=== PATIENT | female | born 1965 | race Caucasian/White ===

== ENCOUNTER 2021-07-23 18:12 | Emergency (ER) | payer OTHER ==
--- NOTE | 2021-07-23 20:14 | RAD REPORT ---
EXAM DESCRIPTION: RAD - Knee Right 3 View - 07/23/2021 8:04 pm CLINICAL HISTORY: trauma COMPARISON: No comparisons FINDINGS: There is a lucency seen in the lateral tibial plateau which is suspicious for a fracture. Small suprapatellar joint effusion is present. CT imaging may be useful for confirmation.
--- NOTE | 2021-07-23 20:15 | RAD REPORT ---
EXAM DESCRIPTION: RAD - Knee Left 2 View - 07/23/2021 8:04 pm CLINICAL HISTORY: trauma COMPARISON: No comparisons FINDINGS: Arthritic changes are present involving the lateral compartment. No fracture seen. A small suprapatellar joint effusion is likely present.
[2021-07-23] MEDS ORDERED: HYDROCODONE/APAP 5/325 MG TAB ONE ×2 (20:29→22:21)
--- NOTE | 2021-07-23 21:00 | RAD REPORT ---
EXAM DESCRIPTION: CT - Knee Right Wo Cont - 07/23/2021 8:48 pm CLINICAL HISTORY: possible tibial plateau fracture, right knee Pain and swelling COMPARISON: No comparisons FINDINGS: 2 mm depressed fracture of the lateral posterior tibial plateau is present. A small moderate lipohemarthrosis. Moderate tricompartmental osteoarthritis. No soft tissue mass is s een. IMPRESSION: Minimally depressed posterolateral tibial plateau fracture.
--- NOTE | 2021-07-23 22:11 | EDPHYS ---
Physician Documentation [facility] Name: Rosa Senior Age: 56 yrs Sex: Female : 1965 Arrival Date: 07/23/2021 Time: 18:17 Bed 15 Private MD: ED Physician Riccardo Rodríguez HPI: 07/23 18:17 This 56 yrs old Female presents to ER via EMS with complaints of Knee Pain. ms3 18:17 Details of fall: The patient fell from an upright position, while standing. Onset: The ms3 symptoms/episode began/occurred acutely, 2 hour(s) ago. Associated injuries: The patient sustained right knee, contusion, left knee. Severity of symptoms: At their worst the symptoms were severe, in the emergency department the symptoms are unchanged. 56-year-old female with past medical history of psoriatic arthritis presents via [facility] status post fall 2 hours prior to arrival. Patient states her feet went outward after she slipped on a deck causing her to land on her bilateral knees. Patient states her right knee hurts worse than the left. Patient states her pain is a 6/10 and worse with weightbearing. Patient denies alleviating factors.. Historical: - Allergies: 18:20 Compazine; ab2 18:20 Codeine; ab2 18:20 Sulfa (Sulfonamide Antibiotics); ab2 - PMHx: 18:20 Arthritis; Hypertensive disorder; ab2 - PSHx: 18:20 None; ab2 - Immunization history:: Adult Immunizations up to date, Client reports receiving the 2nd dose of the Covid vaccine. - Social history:: Smoking status: Patient denies any tobacco usage or history of. ROS: 18:17 Constitutional: Negative for fever, and chills. Eyes: Negative for injury, pain, ms3 redness, and discharge, ENT: Negative for injury, pain, and discharge, Neck: Negative for injury, pain, and swelling, Cardiovascular: Negative for chest pain, and palpitations. Respiratory: Negative for shortness of breath, cough, wheezing, and pleuritic chest pain, Abdomen/GI: Negative for abdominal pain, nausea, vomiting, diarrhea, and constipation, Back: Negative for injury and pain, Skin: Negative for injury, rash, and discoloration, Neuro: Negative for headache, weakness, numbness, tingling. 18:17 MS/extremity: Positive for injury or acute deformity, swelling, tenderness. 18:17 All other systems are negative. Exam: 18:17 Constitutional: This is a well developed, well nourished patient who is awake, alert, ms3 and in no acute distress. Head/Face: Normocephalic, atraumatic. Eyes: Pupils equal round and reactive to light, extra-ocular motions intact. Lids and lashes normal. Conjunctiva and sclera are non-icteric and not injected. Periorbital areas with no swelling, redness, or edema. Neck: Trachea midline, no cervical lymphadenopathy. Supple, full range of motion without nuchal rigidity, or vertebral point tenderness. No Meningismus. Chest/axilla: Normal chest wall appearance and motion. Nontender with no deformity. Cardiovascular: Regular rate and rhythm with a normal S1 and S2. No gallops, murmurs, or rubs. Normal PMI, no JVD. No pulse deficits. Respiratory: Lungs have equal breath sounds bilaterally, clear to auscultation and percussion. No rales, rhonchi or wheezes noted. No increased work of breathing, no retractions or nasal flaring. Abdomen/GI: Soft, non-tender, with normal bowel sounds. No distension or tympany. No guarding or rebound. No evidence of tenderness throughout. Back: No spinal tenderness. No costovertebral tenderness. Full range of motion. Skin: Warm, dry with normal turgor. Normal color with no rashes, no lesions, and no evidence of cellulitis. Neuro: Awake and alert, GCS 15, oriented to person, place, time, and situation. Cranial nerves II-XII grossly intact. Motor strength 5/5 in all extremities. Sensory grossly intact. Cerebellar exam normal. Normal gait. 18:17 Musculoskeletal/extremity: Extremities: noted in the right knee: contusion, ecchymosis, swelling, tenderness, noted in the left knee: contusion, pain, swelling, tenderness, decreased ROM, ROM: Pulses: are normal with no appreciated deficits, Sensation intact. Compartment Syndrome exam of affected extremity: is normal. Joints: Vital Signs: 18:17 BP 129 / 64; Pulse 83; Resp 18; Temp 97.8(TE); Pulse Ox 100% on R/A; Weight 102.06 kg; ab2 Height 5 ft. 8 in. (172.72 cm); Pain 6/10; 20:08 BP 131 / 68 LA Supine (auto/reg); Pulse 80 MON; Resp 16; Pulse Ox 99% on R/A; sv1 18:17 Body Mass Index 34.21 (102.06 kg, 172.72 cm) ab2 MDM: 18:17 Differential diagnosis: contusion, fracture, sprain, strain. Data reviewed: vital ms3 signs, nurses notes. Transition of care: After a detail discussion of the patient's case, care is transferred to Riccardo Rodríguez MD. 18:19 Patient medically screened. ms3 22:02 Data interpreted: Pulse oximetry: on room air is 99 %. Interpretation: normal. mh7 Counseling: I had a detailed discussion with the patient and/or guardian regarding: the historical points, exam findings, and any diagnostic results supporting the discharge/admit diagnosis, radiology results, the need for outpatient follow up, a orthopedic surgeon, to return to the emergency department if symptoms worsen or persist or if there are any questions or concerns that arise at home. Response to treatment: the patient's symptoms have markedly improved after treatment. Physician consultation: Eric Plaza MD was contacted at 21:50, regarding patient's condition, and will see patient in office, Recommended a knee immobilizer and crutches. 07/23 18:33 Order name: Knee Left 2 View XRAY; Complete Time: 20:25 ms3 07/23 18:33 Order name: Knee Right 3 View XRAY; Complete Time: 20:25 ms3 07/23 20:35 Order name: Knee Right Wo Cont; Complete Time: 21:51 EDMS 07/23 22:01 Order name: Knee Immobilizer; Complete Time: 22:40 mh7 07/23 22:01 Order name: Crutches; Complete Time: 22:40 mh7 Administered Medications: 19:45 Drug: HYDROcodone-acetaminophen 5 mg-325 mg 1 tabs Route: PO; sv1 21:06 Follow up: Response: No adverse reaction; Pain is decreased sv1 22:04 Follow up: Response: No adverse reaction; Pain is decreased sv1 22:20 Drug: HYDROcodone-acetaminophen 5 mg-325 mg 1 tabs Route: Feeding Tube; sv1 22:42 Follow up: Response: No adverse reaction; Pain is decreased sv1 Disposition Summary: 02/26/22 22:11 Discharge Ordered Location: Home [facility] Problem: new [facility] Symptoms: have improved [facility] Condition: Stable [facility] Diagnosis - Tibial Plateau Fracture, Right mh7 - Contusion, Left Knee 7 - Fall on same level, unspecified [facility] Followup: [facility] - With: Private Physician - When: 1 - 2 days - Reason: Worsening of condition, Recheck today's complaints, Continuance of care, Re-evaluation by your physician Followup: [facility] - With: Eric Plaza MD - When: 2 - 3 days - Reason: Worsening of condition, Recheck today's complaints, Continuance of care, Re-evaluation by your physician Discharge Instructions: - Discharge Summary Sheet [facility] - Nondisplaced Tibial Plateau Fracture [facility] - Crutch Use, Adult, [id number] [facility] - Contusion, Fuar-se-Cnez [facility] - How to Use a Knee Immobilizer, [id number] [facility] Forms: - Medication Reconciliation Form [facility] - Thank You Letter [facility] - Antibiotic Education [facility] - Prescription Opioid Use [facility] - Work release form 3 Prescriptions: - ketorolac 10 mg Oral tablet - take 1 tablet by ORAL route every 6 hours As needed not to exceed 40 mg in 7 24hrs; 15 tablet; Refills: 0, Product Selection Permitted - Tramadol 50 mg Oral Tablet - take 1 tablet by ORAL route every 8 hours As needed as needed; 20 tablet; mh7 Refills: 0, Product Selection Permitted Signatures: Dispatcher [employer] EDMS Reilly Stringer DO DO ms3 Riccardo Rodríguez MD MD 7 Fabian Garcia RN RN sv1 Nixon Rabago ab2 Corrections: (The following items were deleted from the chart) 20:35 20:33 CT-LOWER EXTREMITY W/O CONTR ordered. EDMS EDMS
--- NOTE | 2021-07-23 22:11 | ER ---
Nurse's Notes [facility] Name: Rosa Senior Age: 56 yrs Sex: Female : 1965 Arrival Date: 07/23/2021 Time: 18:17 Bed 15 Private MD: Diagnosis: Tibial Plateau Fracture, Right;Contusion, Left Knee;Fall on same level, unspecified Presentation: 07/23 18:17 Chief complaint: Patient states: "I fell walking up my wet stairs and my legs hurt, I ab2 cant put weight on them." Pt denies hitting head or LOC. Chief complaint:. Coronavirus screen: Vaccine status: Patient reports receiving the 2nd dose of the covid vaccine. Client denies travel out of the [place] in the last 14 days. At this time, the client does not indicate any symptoms associated with coronavirus-19. Ebola Screen: Patient negative for fever greater than or equal to 101.5 degrees Fahrenheit, and additional compatible Ebola Virus Disease symptoms Patient denies exposure to infectious person. Patient denies travel to an Ebola-affected area in the 21 days before illness onset. No symptoms or risks identified at this time. Initial Sepsis Screen: Does the patient meet any 2 criteria? No. Patient's initial sepsis screen is negative. Does the patient have a suspected source of infection? No. Patient's initial sepsis screen is negative. Risk Assessment: Do you want to hurt yourself or someone else? Patient reports no desire to harm self or others. Onset of symptoms is unknown. 18:17 Method Of Arrival: EMS ab2 18:17 Acuity: JUMA 4 ab2 Triage Assessment: 20:30 General: Appears distressed, obese, well groomed. Pain: Complains of pain in right leg sv1 and left leg. Historical: - Allergies: 18:20 Compazine; ab2 18:20 Codeine; ab2 18:20 Sulfa (Sulfonamide Antibiotics); ab2 - PMHx: 18:20 Arthritis; Hypertensive disorder; ab2 - PSHx: 18:20 None; ab2 - Immunization history:: Adult Immunizations up to date, Client reports receiving the 2nd dose of the Covid vaccine. - Social history:: Smoking status: Patient denies any tobacco usage or history of. Screenin:24 Abuse screen: Denies threats or abuse. Denies injuries from another. Nutritional ab2 screening: No deficits noted. Tuberculosis screening: No symptoms or risk factors identified. Fall Risk Fall in past 12 months (25 points). No secondary diagnosis (0 pts). No IV (0 pts). Ambulatory Aid- None/Bed Rest/Nurse Assist (0 pts). Gait- Normal/Bed Rest/Wheelchair (0 pts) Mental Status- Oriented to own ability (0 pts). Total Yu Fall Scale indicates Low Risk Score (25-44 pts). Fall prevention measures have been instituted. Side Rails Up X 2 Frequent Obs/Assesments occuring As available Patient and Family Educated on Fall Prevention Program and strategies. Assessment: 18:22 General: Appears in no apparent distress. uncomfortable, Behavior is calm, cooperative, ab2 appropriate for age. Pain: Complains of pain in right leg and left leg Pain currently is 6 out of 10 on a pain scale. Neuro: Level of Consciousness is awake, alert, obeys commands, Oriented to person, place, time, situation, Appropriate for age Bandage Wrapping Machine Operator are equal bilaterally Moves all extremities. Speech is normal, Facial symmetry appears normal. Cardiovascular: No deficits noted. Denies chest pain, shortness of breath, Heart tones S1 S2 present Patient's skin is warm and dry. Respiratory: Airway is patent Respiratory effort is even, unlabored, Respiratory pattern is regular, symmetrical, Breath sounds are clear bilaterally. GI: No deficits noted. No signs and/or symptoms were reported involving the gastrointestinal system. Abdomen is round non-distended, Bowel sounds present X 4 quads. : No deficits noted. No signs and/or symptoms were reported regarding the genitourinary system. EENT: No deficits noted. No signs and/or symptoms were reported regarding the EENT system. Derm: No deficits noted. No signs and/or symptoms reported regarding the dermatologic system. Skin is intact, is healthy with good turgor, Skin is pink, warm \\T\\ dry. Musculoskeletal: Reports weakness in right leg and left leg pain in right leg and left leg. Vital Signs: 18:17 BP 129 / 64; Pulse 83; Resp 18; Temp 97.8(TE); Pulse Ox 100% on R/A; Weight 102.06 kg; ab2 Height 5 ft. 8 in. (172.72 cm); Pain 6/10; 20:08 BP 131 / 68 LA Supine (auto/reg); Pulse 80 MON; Resp 16; Pulse Ox 99% on R/A; sv1 18:17 Body Mass Index 34.21 (102.06 kg, 172.72 cm) ab2 ED Course: 18:17 Patient arrived in ED. ab2 18:17 Nixon Rabago is Primary Nurse. ab2 18:19 Reilly Stringer DO is Attending Physician. ms3 18:20 Triage completed. ab2 18:24 Arm band placed on right wrist. ab2 18:24 Patient has correct armband on for positive identification. Bed in low position. Call ab2 light in reach. Side rails up X2. 18:24 No provider procedures requiring assistance completed. ab2 19:01 Attending Physician role handed off by Reilly Stringer DO mh7 19:01 Riccardo Rodríguez MD is Attending Physician. mh7 20:04 Knee Left 2 View XRAY In Process Unspecified. EDMS 20:04 Knee Right 3 View XRAY In Process Unspecified. EDMS 20:48 Knee Right Wo Cont In Process Unspecified. EDMS 22:09 Eric Plaza MD is Referral Physician. 7 Administered Medications: 19:45 Drug: HYDROcodone-acetaminophen 5 mg-325 mg 1 tabs Route: PO; sv1 21:06 Follow up: Response: No adverse reaction; Pain is decreased sv1 22:04 Follow up: Response: No adverse reaction; Pain is decreased sv1 22:20 Drug: HYDROcodone-acetaminophen 5 mg-325 mg 1 tabs Route: Feeding Tube; sv1 22:42 Follow up: Response: No adverse reaction; Pain is decreased sv1 Outcome: 22:11 Discharge ordered by . [facility] 22:46 Patient left the ED. sv1 Signatures: Dispatcher [employer] EDMS Reilly Stringer DO DO ms3 Riccardo Rodríguez MD MD [facility] Fabian Garcia RN RN sv1 Nixon Rabago ab2
[2021-07-23 22:59] VITALS: TEMP 97.8
[2021-07-23 23:00] VITALS: BP 131/68; O2SAT 99
== END 2021-07-23 22:46 | disposition home or self-care (01) ==
LOC: ER 18:12
DX: S82.141A Displaced bicondylar fracture of right tibia, initial encounter for closed fracture (principal); S80.02XA Contusion of left knee, initial encounter; W01.0XXA Fall on same level from slipping, tripping and stumbling without subsequent striking against object, initial encounter; I10 Essential (primary) hypertension; Z88.2 Allergy status to sulfonamides; Z88.5 Allergy status to narcotic agent
CPT/HCPCS: 73700; 99283